=== PATIENT | female | born 1980 | race Caucasian/White ===

== ENCOUNTER 2018-05-23 11:20 | Emergency (ER) | payer BC ==
--- NOTE | 2018-05-23 12:25 | XR ---
EXAMINATION TYPE: XR chest 2V DATE OF EXAM: 05/23/2018 COMPARISON: NONE HISTORY: Cough congestion and sore throat for 3 to 4 days TECHNIQUE: Frontal and lateral views of the chest are obtained. FINDINGS: There is no focal air space opacity, pleural effusion, or pneumothorax seen. The cardiac silhouette size is within normal limits. The osseous structures are intact. IMPRESSION: No acute cardiopulmonary process.
[2018-05-23] MEDS ORDERED: IBUPROFEN 600 MG TAB PO STA (12:44)
--- NOTE | 2018-05-23 12:52 | ED ---
General Adult HPI - General Chief complaint: ENT Stated complaint: Sore Throat Time Seen by Provider: 05/23/18 12:01 Source: patient, RN notes reviewed Mode of arrival: ambulatory Limitations: no limitations - History of Present Illness Initial comments: 38-year-old female presents to the emergency department for a chief complaint of sore throat 4 days. Patient states she can swallow liquids without difficulty but it is painful because her throat is sore. Patient states she also has tenderness of the anterior cervical lymph nodes. Patient admits to a cough for the past 4 months. Patient states she has not seen her primary care provider for this. Patient denies any shortness of breath or wheezing with the cough. Patient states the cough is productive. Patient admits to seasonal ALLERGIES but states she only takes Benadryl at night when needed. She has not taken it lately. Patient states she did have asthma as a child but no longer experiences symptoms of asthma as an adult. Patient denies ear pain. No fevers or chills at home. Patient has no other complaints at this time including shortness of breath, chest pain, abdominal pain, nausea or vomiting, headache, or visual changes. - Related Data Home Medications Medication Instructions Recorded Confirmed FLUoxetine HCL [PROzac] 40 mg PO DAILY 05/23/18 05/23/18 Ibuprofen [Motrin Ib] 200 mg PO Q6H PRN 05/23/18 05/23/18 Previous Rx's Medication Instructions Recorded Loratadine [Claritin] 10 mg PO DAILY #20 tab 05/23/18 Nystatin 100,000 Unit/ml Susp 5 ml PO QID 14 Days ml 05/23/18 [Mycostatin Oral Susp] Allergies Allergy/AdvReac Type Severity Reaction Status Date / Time No Known Allergies Allergy Verified 05/23/18 11:54 Review of Systems ROS Statement: Those systems with pertinent positive or pertinent negative responses have been documented in the HPI. ROS Other: All systems not noted in ROS Statement are negative. Past Medical History Past Medical History: No Reported History History of Any Multi-Drug Resistant Organisms: None Reported Past Surgical History: Cholecystectomy, Orthopedic Surgery Past Psychological History: Anxiety, Depression Smoking Status: Current every day smoker Past Alcohol Use History: None Reported Past Drug Use History: None Reported General Exam Limitations: no limitations General appearance: alert, in no apparent distress Head exam: Present: atraumatic, normocephalic, normal inspection Eye exam: Present: normal appearance. Absent: scleral icterus, conjunctival injection, nystagmus, periorbital swelling, periorbital tenderness ENT exam: Present: normal exam, mucous membranes moist, TM's normal bilaterally , normal external ear exam. Absent: normal oropharynx (slighlty erythematous oropharynx. oropharynx patent. uvula midline. no signs of peritonsillar abscess. Possible thrush noted on tongue.) Neck exam: Present: full ROM, lymphadenopathy (mild tender anterior cervical lymphadenopathy). Absent: tenderness, meningismus Respiratory exam: Present: normal lung sounds bilaterally. Absent: respiratory distress, wheezes, rales, rhonchi, stridor, accessory muscle use, decreased breath sounds, prolonged expiratory Cardiovascular Exam: Present: regular rate, normal rhythm, normal heart sounds. Absent: systolic murmur, diastolic murmur, rubs, gallop, clicks Skin exam: Present: warm, dry, intact, normal color. Absent: rash Course Vital Signs 05/23/18 11:39 Temperature 98.6 F Pulse Rate 85 Respiratory 16 Rate Blood Pressure 131/76 O2 Sat by Pulse 99 Oximetry Medical Decision Making - Medical Decision Making 38-year-old female presents to the emergency department for a chief complaint of sore throat 3 days. Patient can swallow liquids without difficulty. She states it is painful to swallow however. No fevers or chills at home. On exam oropharynx is patent and uvula midline. Mild thrush possible although this may be related to poor oral hygiene. Mild anterior cervical lymphadenopathy. Patient also has a cough/nasal congestion for 4 months. Lungs are clear to auscultation bilaterally. No wheezing noted. Patient does admit to seasonal ALLERGIES but states she does not take anything daily. Chest x-ray shows no acute cardiopulmonary process. No focal airspace opacity. Group A strep negative. Culture will be sent. Patient will be prescribed nystatin for thrush. She will be given Claritin for symptoms of cough and congestion. She will follow up with primary care in 1-2 days. She will return to the emergency Department if she has any worsening symptoms. - Lab Data Lab Results 05/23/18 Range/Units 12:15 Group A Strep Rapid Negative (Negative) Disposition Clinical Impression: Viral pharyngitis, Thrush, oral Disposition: HOME SELF-CARE Condition: Good Instructions: Oral Candidiasis (ED), Pharyngitis (ED) Additional Instructions: Please use nystatin as directed. Take Claritin daily. Take Motrin or Tylenol for pain of the throat. Follow-up with primary care in 1-2 days. If symptoms worsen, you experience high fevers, or have any other additional concerns please return to the emergency department. Prescriptions: Loratadine [Claritin] 10 mg PO DAILY #20 tab Nystatin 100,000 Unit/ml Susp [Mycostatin Oral Susp] 5 ml PO QID 14 Days ml Is patient prescribed a controlled substance at d/c from ED?: No Referrals: Shannan Corona MD [Primary Care Provider] - 1-2 days Time of Disposition: 12:53
[2018-05-23 13:32] VITALS: BP 118/67; PULSE 83; RESP 18; TEMP 98.5
== END 2018-05-23 13:31 | disposition home or self-care (01) ==
LOC: EC 11:20
DX: B37.0 Candidal stomatitis (principal); J02.8 Acute pharyngitis due to other specified organisms; F32.9 Major depressive disorder, single episode, unspecified; F41.9 Anxiety disorder, unspecified; F17.200 Nicotine dependence, unspecified, uncomplicated; Z79.899 Other long term (current) drug therapy
CPT/HCPCS: 71046; 87081; 87430; 99283

== ENCOUNTER 2019-12-11 20:57 | Outpatient (CLI) | payer BC, OTHER ==
[2019-12-11] MEDS ORDERED: TERBUTALINE 1 MG/ML VIAL SQ PRN (23:16)
[2019-12-11] MEDS ORDERED: LACTATED RINGERS 1,000 ML IV SCH (23:30)
[2019-12-12 01:48] VITALS: RESP 16
[2019-12-12 01:51] VITALS: BP 122/67; PULSE 97
--- NOTE | 2020-01-27 10:35 | P.MSEPDOC ---
Presenting Problems - Arrival Data Date of Arrival on Unit: 12/12/19 Time of Arrival on Unit: 20:57 Mode of Transport: Ambulatory - Complaint OB-Reason for Admission/Chief Complaint: Possible Onset of Labor Comment: back pain and pelvic pressure every 10 mins for 1-2 hours Medical History - Information : 3 Para: 2 Term: 2 : 0 Abortions: Spontaneous or Elective: 0 Number of Living Children: 2 - Gestational Age Gestational Age by ALKA (wks/days): 32 Weeks and 2 Days Review of Systems - Review of Systems Constitutional: No problems Breast: No problems ENT: No problems Cardiovascular: No problems Respiratory: No problems Gastrointestinal: No problems Genitourinary: No problems Musculoskeletal: No problems Neurological: No problems Skin: No problems Vital Signs - Pulse Pulse Oximetery Pulse Rate: 97 Pulse Assessment Method: Pulse Oximetry - Respirations Respiratory Rate: 16 Oxygen Delivery Method: Room Air O2 Sat by Pulse Oximetry: 97 - Blood Pressure Right Arm Blood Pressure: 122/67 Blood Pressure Mean: 85 Blood Pressure Source: Automatic Cuff Medical Screen Scoring (Pre) - Cervical Exam Dilation: 1-3 cm = 1 Effacement: Exam Deferred Membranes: Intact - Uterine Contractions Frequency: < 36 weeks = 6 Duration: > 40 seconds = 2 Intensity: N/A - Maternal Vital Signs Maternal Temperature: N/A Maternal Blood Pressure: N/A Signs of Preeclampsia: N/A Maternal Respirations: N/A - Maternal Trauma Maternal Trauma: N/A - Assessment - Baby A Baseline FHR: 130 Heart Rate - NICHD Category: Category I (Normal) = 0 NST: Reactive Position: N/A Station: N/A - Total Score - Baby A Total Score - Baby A: 9 - Total Score - Baby B Total Score - Baby B: 9 - Total Score - Baby C Total Score - Baby C: 9 - Level of Risk - Baby A Level of Risk - Baby A: Medium (6-9) - Level of Risk - Baby B Level of Risk - Baby B: Medium (6-9) - Level of Risk - Baby C Level of Risk - Baby C: Medium (6-9) Physician Notification (Pre) - Physician Notified Physician Notified Date: 12/12/19 Physician Notified Time: 21:26 New Order Received: Yes - Notification Comment Comment: Report given on maternal and status, complaints of back pain and pelvic pressure every 10 mins for 1-2 hours. Mild tightening of abdomen palpated. Orders to obtain FFN, check cervix, and give 1L of LR. 2325 - Orders to give 0.25 mg SQ turbutaline, follow protocol. Medical Screen Scoring (Post) - Uterine Contractions Frequency: N/A Duration: N/A Intensity: N/A - Maternal Vital Signs Maternal Temperature: N/A Maternal Blood Pressure: N/A Signs of Preeclampsia: N/A Maternal Respirations: N/A - Pain Assessment Pain Scale Used: Numeric (1 - 10) Pain Intensity: 0 - Maternal Trauma Maternal Trauma: N/A - Assessment - Baby A Heart Rate: 130 Heart Rate - NICHD Category: Category I (Normal) = 0 NST: Reactive Position: N/A Station: N/A - Total Score Total Score - Baby A: 0 Total Score - Baby B: 0 Total Score - Baby C: 0 - Post Treatment Level of Risk Post Treatment Level of Risk - Baby A: Low (0-5) Post Treatment Level of Risk - Baby B: Low (0-5) Post Treatment Level of Risk - Baby C: Low (0-5) Physician Notification (Post) - Physician Notified Physician Notified Date: 12/12/19 Physician Notified Time: 00:25 Physician/Practitioner Notified:: Hebert Spoke With: Hebert New Order Received: Yes - Notification Comment Comment: Dr. Ambrosio updated on pt's status after 1L LR and 0.25mg SQ turb. Pt denies any contractions, none are palpable, and none are graphing on the monitor. Orders to discharge pt with instructions to follow up with OB this upcoming week, rest, and hydrate. Disposition - Disposition OB Disposition: Discharge to home Discharge Date: 12/12/19 Discharge Time: 00:30 I agree with the RN Medical Screening Exam: Yes Risk & Benefit of care provided described in d/c instruction: Yes Diagnosis: FALSE LABOR BEFORE 37 COMPLETED WEEKS OF GEST, THIRD TRI
== END 2019-12-12 00:32 | disposition home or self-care (01) ==
LOC: FBPOP 20:57
PROVIDERS: ATTEND Obstetrics & Gynecology Obstetrics
DX: O47.03 False labor before 37 completed weeks of gestation, third trimester (principal); Z3A.32 32 weeks gestation of pregnancy
CPT/HCPCS: 59025; 96360; 96361; 96372; 82731; G0463; J3105; 99214

== ENCOUNTER 2020-01-17 20:57 | Outpatient (CLI) | payer OTHER ==
[2020-01-17 22:34] VITALS: BP 129/72; PULSE 83; RESP 16; TEMP 97.8
--- NOTE | 2020-03-13 07:45 | P.MSEPDOC ---
Presenting Problems - Arrival Data Date of Arrival on Unit: 01/17/20 Time of Arrival on Unit: 20:57 Mode of Transport: Ambulatory - Complaint OB-Reason for Admission/Chief Complaint: Possible Onset of Labor Comment: cntrx q15 x1 hr Medical History - Information : 3 Para: 2 Term: 2 : 0 Abortions: Spontaneous or Elective: 0 Number of Living Children: 2 - Gestational Age Gestational Age by ALKA (wks/days): 37 Weeks and 3 Days - History Complications: GBS+ Review of Systems - Review of Systems Constitutional: No problems Breast: No problems ENT: No problems Cardiovascular: No problems Respiratory: No problems Gastrointestinal: No problems Genitourinary: No problems Musculoskeletal: No problems Neurological: No problems Skin: No problems Vital Signs - Temperature Temperature: 97.8 F Temperature Source: Temporal Artery Scan - Pulse Right Pulse Rate: 83 Pulse Assessment Method: Automatic Cuff - Respirations Respiratory Rate: 16 O2 Sat by Pulse Oximetry: 98 - Blood Pressure Right Arm Blood Pressure: 129/72 Blood Pressure Mean: 91 Blood Pressure Source: Automatic Cuff Medical Screen Scoring (Pre) - Cervical Exam Dilation: 1-3 cm = 1 Membranes: Intact - Uterine Contractions Frequency: > or = 36 weeks =2 Duration: > 40 seconds = 2 Intensity: N/A - Maternal Vital Signs Maternal Temperature: N/A Maternal Blood Pressure: N/A Signs of Preeclampsia: N/A Maternal Respirations: N/A - Maternal Trauma Maternal Trauma: N/A - Assessment - Baby A Baseline FHR: 130 Heart Rate - NICHD Category: Category I (Normal) = 0 NST: Reactive Position: N/A - Total Score - Baby A Total Score - Baby A: 5 - Total Score - Baby B Total Score - Baby B: 5 - Total Score - Baby C Total Score - Baby C: 5 - Level of Risk - Baby A Level of Risk - Baby A: Low (0-5) - Level of Risk - Baby B Level of Risk - Baby B: Low (0-5) - Level of Risk - Baby C Level of Risk - Baby C: Low (0-5) Physician Notification (Pre) - Physician Notified Physician Notified Date: 01/17/20 Physician Notified Time: 22:15 - Notification Comment Comment: called Dr May at home. Reported on pt's c/o cramping and cntrx since. 1929, every 15 minutes, no bleeding or leaking. Reported on SVE in office, on admission,. and after 1 hr- no cervical change. Reported on fhts, decel at 2137 that returned to baseline and has been. reactive with moderate variability since. Reported on interventions done, no other. decels noted. Reported on vitals. pt GBS+. Orders to d/c home at this time, return with new or. worsening s/sx, otherwise keep scheduled appt in office Disposition - Disposition OB Disposition: Discharge to home Discharge Date: 01/17/20 Discharge Time: 22:30 I agree with the RN Medical Screening Exam: Yes Risk & Benefit of care provided described in d/c instruction: Yes Diagnosis: False labor
== END 2020-01-17 22:30 | disposition home or self-care (01) ==
LOC: FBPOP 20:57
PROVIDERS: ATTEND Obstetrics & Gynecology
DX: O47.1 False labor at or after 37 completed weeks of gestation (principal); Z3A.37 37 weeks gestation of pregnancy
CPT/HCPCS: 59025; G0463; 99213

== ENCOUNTER 2020-01-26 20:05 | Outpatient (CLI) | payer OTHER ==
[2020-01-26 21:34] VITALS: BP 135/74; PULSE 94; RESP 16; TEMP 98.1
--- NOTE | 2020-01-27 12:05 | P.MSEPDOC ---
Presenting Problems - Arrival Data Date of Arrival on Unit: 01/26/20 Time of Arrival on Unit: 20:05 Mode of Transport: Wheelchair - Complaint OB-Reason for Admission/Chief Complaint: Rule Out SROM Medical History - Information : 4 Para: 2 Term: 2 : 0 Abortions: Spontaneous or Elective: 1 Number of Living Children: 2 - Gestational Age Gestational Age by ALKA (wks/days): 38 Weeks and 5 Days - History Complications: GBS+ Review of Systems - Review of Systems Constitutional: No problems Breast: No problems ENT: No problems Cardiovascular: No problems Respiratory: No problems Gastrointestinal: No problems Genitourinary: No problems Musculoskeletal: No problems Neurological: No problems Skin: No problems Vital Signs - Temperature Temperature: 98.1 F Temperature Source: Oral - Pulse Right Brachial Pulse Rate: 94 Pulse Assessment Method: Automatic Cuff - Respirations Respiratory Rate: 16 Oxygen Delivery Method: Room Air O2 Sat by Pulse Oximetry: 98 - Blood Pressure Right Arm Blood Pressure: 135/74 Blood Pressure Mean: 94 Blood Pressure Source: Automatic Cuff Medical Screen Scoring (Pre) - Cervical Exam Dilation: 1-3 cm = 1 Membranes: Intact - Uterine Contractions Frequency: > 5 minutes apart = 1 Intensity: N/A - Maternal Vital Signs Maternal Temperature: N/A Maternal Blood Pressure: N/A Signs of Preeclampsia: N/A Maternal Respirations: N/A - Maternal Trauma Maternal Trauma: N/A - Assessment - Baby A Baseline FHR: 145 Heart Rate - NICHD Category: Category I (Normal) = 0 NST: Reactive Position: N/A Station: N/A - Total Score - Baby A Total Score - Baby A: 2 - Total Score - Baby B Total Score - Baby B: 2 - Total Score - Baby C Total Score - Baby C: 2 - Level of Risk - Baby A Level of Risk - Baby A: Low (0-5) - Level of Risk - Baby B Level of Risk - Baby B: Low (0-5) - Level of Risk - Baby C Level of Risk - Baby C: Low (0-5) Physician Notification (Pre) - Physician Notified Physician Notified Date: 01/26/20 Physician Notified Time: 20:22 New Order Received: Yes - Notification Comment Comment: Dr. Ambrosio in unit and given report on pt in tr. VS WNL. Reviewed strip. Vag. exam of 2.5/60/-2. Orders recieved to orally hydrate pt. If no change after 1 hour and. amnisure is negative to d/c pt to home. Disposition - Disposition OB Disposition: Discharge to home Discharge Date: 01/26/20 Discharge Time: 21:18 I agree with the RN Medical Screening Exam: Yes Risk & Benefit of care provided described in d/c instruction: Yes Diagnosis: FALSE LABOR AT OR AFTER 37 COMPLETED WEEKS OF GESTATION
== END 2020-01-26 21:18 | disposition home or self-care (01) ==
LOC: FBPOP 20:05
PROVIDERS: ATTEND Obstetrics & Gynecology Obstetrics
DX: O47.1 False labor at or after 37 completed weeks of gestation (principal); Z3A.38 38 weeks gestation of pregnancy
CPT/HCPCS: 59025; 84112; G0463; 99213

== ENCOUNTER 2020-02-01 06:30 | Inpatient (IN) | payer OTHER ==
[2020-02-01] MEDS: LACTATED RINGERS 1,000 ML IV SCH ×2 (06:55→15:04)
[2020-02-01] MEDS ORDERED: CARBOPROST TROMETHAMINE 250 MCG/ML 1 ML AMP IM PRN (07:00)
[2020-02-01] MEDS ORDERED: TERBUTALINE 1 MG/ML VIAL SQ PRN (07:00)
[2020-02-01] MEDS ORDERED: PENICILLIN G POTASSIUM 5,000,000 UNIT in DEXTROSE 5% IN WATER 100 ML IVPB STA ×2 (07:00)
[2020-02-01] MEDS ORDERED: OXYTOCIN 30 UNITS/500 ML NS 30 UNIT in SALINE 1 500ML.BAG IV SCH (07:00)
[2020-02-01] MEDS ORDERED: METHYLERGONOVINE 0.2 MG/ML 1 ML AMP IM PRN (07:00)
[2020-02-01] MEDS ORDERED: LIDOCAINE 0.5% (PF) 5 MG/ML (50 ML SDV) SQ PRN (07:00)
[2020-02-01] MEDS ORDERED: OXYTOCIN 10 UNIT/ML 1 ML VIAL IM PRN (07:00)
[2020-02-01 07:15] LABS: Basophils # (A) 0.1 k/uL (0-0.2); Basophils % (A) 1 %; Eosinophils # (A) 0.3 k/uL (0-0.7); Eosinophils % (A) 2 %; HCT 32.7 % (34.0-46.0); HGB 11.1 gm/dL (11.4-16.0); Lymphocytes # (A) 2.4 k/uL (1.0-4.8); Lymphocytes % (A) 21 %; MCH 32.5 pg (25.0-35.0); MCHC 33.9 g/dL (31.0-37.0); Mean Platelet Volume 7.8; Monocytes # (A) 0.6 k/uL (0-1.0); Monocytes % (A) 5 %; Neutrophils # (A) 7.9 k/uL (1.3-7.7); Neutrophils % (A) 69 %; Platelet Count 287 k/uL (150-450); RDW 13.1 % (11.5-15.5); WBC 11.4 k/uL (3.8-10.6)
[2020-02-01] MEDS ORDERED: BUTORPHANOL 1 MG/ML 1 ML VIAL IV PRN (08:52)
--- NOTE | 2020-02-01 08:56 | P.HPOB ---
History of Present Illness H&P Date: 02/01/20 Chief Complaint: 39-4/7 weeks, elective induction The patient is a 39-year-old 4 para 2011 admitted at 39-4/7 weeks as established by last menstrual period and confirmed by every week ultrasound. Her has been uncomplicated and group B strep status is positive. She does fall into the category of advanced maternal age and declined any trisomy testing. Obstetrical history: 4 para 2012 with 2 term vaginal deliveries with one early miscarriage. Current statistics are listed in history of present illness. EDC of 02/04/2020 was established by last menstrual period and confirmed by an 8 week ultrasound. Laboratory workup demonstrates a blood type of O+ with a negative antibody screen. Rubella status is immune. Remainder of laboratory workup was within normal limits. Early Glucola as well as second trimester Glucola was within normal limits and group B strep status is positive. Gynecologic history: Unremarkable with no history of any infections to include STDs. Review of Systems Review of systems is confined to history of present illness. Past Medical History Past Medical History: No Reported History History of Any Multi-Drug Resistant Organisms: None Reported Past Surgical History: Cholecystectomy, Orthopedic Surgery Additional Past Surgical History / Comment(s): multiple ankle surgeries Past Anesthesia/Blood Transfusion Reactions: No Reported Reaction Past Psychological History: Anxiety, Depression Smoking Status: Never smoker Past Alcohol Use History: None Reported Past Drug Use History: None Reported - Past Family History Father Family Medical History: No Reported History Medications and Allergies Home Medications Medication Instructions Recorded Confirmed Type FLUoxetine HCL [PROzac] 40 mg PO DAILY 05/23/18 02/01/20 History Omeprazole Magnesium [PriLOSEC OTC] 20 mg PO DAILY 12/11/19 02/01/20 History Pnv No.95/Ferrous Fum/Folic AC 1 each PO DAILY 02/01/20 02/01/20 History [ Multivitamin Tablet] Allergies Allergy/AdvReac Type Severity Reaction Status Date / Time No Known Allergies Allergy Verified 02/01/20 06:57 Exam Vital Signs Temp Pulse Resp BP Pulse Ox 02/01/20 07:58 97.5 F L 86 17 130/76 98 Intake and Output 01/31/20 02/01/20 02/01/20 22:59 06:59 14:59 Other: Weight 86.183 kg 86.183 kg In general, this is a well-developed, well-nourished white female in no acute distress. Her heart has a regular rhythm and rate without murmur. Her lungs are clear to auscultation bilaterally in all pacheco. Her abdomen is gravid, nondistended, has normal active bowel sounds, is soft, nontender, and without any palpable masses aside from uterine fundus. Her extremities are without any cyanosis, clubbing, or significant edema and are nontender to palpation bilaterally. Digital cervical examination on straights her cervix to be 3 cm dilated, 50% effaced, the vertex in presentation at -2 station. Artificial rupture of membranes is carried out demonstrating clear fluid. Results Result Diagrams: 02/01/20 06:50 Abnormal Lab Results - Last 24 Hours (Table) 02/01/20 Range/Units 06:50 WBC 11.4 H (3.8-10.6) k/uL RBC 3.40 L (3.80-5.40) m/uL Hgb 11.1 L (11.4-16.0) gm/dL Hct 32.7 L (34.0-46.0) % Neutrophils # 7.9 H (1.3-7.7) k/uL Assessment and Plan (1) Term Current Visit: Yes Status: Acute Code(s): Z34.90 - ENCNTR FOR SUPRVSN OF NO RMAL , UNSP, UNSP TRIMESTER SNOMED Code(s): 06984628 (2) Group B streptococcal infection in Current Visit: Yes Status: Acute Code(s): O98.819 - OTH MATERNAL INFEC/PARASTC DISEASES COMP PREG, UNSP TRI; B95.1 - STREPTOCOCCUS, GROUP B, CAUSING DISEASES CLASSD ELSWHR SNOMED Code(s): 626880878 Plan: The patient is admitted for active management of labor. She has had antibiotic prophylaxis started for group B strep prophylaxis. Pitocin augmentation has been started and she has undergone artificial rupture membranes. She will have close maternal and surveillance and expectant management will be practiced. She is a good candidate for either IV or epidural analgesia, whichever she may choose.
[2020-02-01] MEDS: PENICILLIN G POTASSIUM 2,500,000 UNIT in DEXTROSE 5% IN WATER 100 ML IVPB SCH ×4 (11:15→15:04)
[2020-02-01] MEDS ORDERED: ROPIVACAINE 100 MG, fentaNYL (PF) 200 MCG in SODIUM CHLORIDE 0.9% 76 ML EPIDURAL ONE (15:53)
[2020-02-01] MEDS ORDERED: CITRIC ACID-SODIUM CITRATE 15 ML CUP PO ONE (17:53)
[2020-02-01] MEDS ORDERED: DEXAMETHASONE SOD PHOS (MDV) 100 MG/10 ML VIAL ONE (17:58)
[2020-02-01] MEDS ORDERED: ONDANSETRON 4 MG/2 ML VIAL ONE (17:58)
[2020-02-01] MEDS ORDERED: MORPHINE SULFATE (PF) 0.3 MG/0.3 ML SYR ONE (17:58)
[2020-02-01] MEDS ORDERED: OXYTOCIN 10 UNIT/ML 1 ML VIAL ONE (17:58)
[2020-02-01] MEDS ORDERED: KETOROLAC 30 MG/ML 1 ML VIAL ONE (17:58)
[2020-02-01] MEDS ORDERED: ONDANSETRON 4 MG/2 ML VIAL IVP PRN ×2 (18:26→18:47)
[2020-02-01] MEDS ORDERED: NALOXONE 0.4 MG/ML 1 ML VIAL IV PRN (18:26)
[2020-02-01] MEDS ORDERED: HYDROmorphone 0.5 MG/0.5 ML SYRINGE IVP PRN (18:26)
[2020-02-01] MEDS ORDERED: NALBUPHINE 10 MG/0.5 ML (10 mL MDV) IV PRN (18:26)
[2020-02-01] MEDS ORDERED: diphenhydrAMINE 50 MG/ML 1 ML VIAL IVP PRN ×3 (18:26→18:47)
[2020-02-01] MEDS ORDERED: ACETAMINOPHEN TAB 325 MG TAB PO PRN (18:47)
[2020-02-01] MEDS ORDERED: METOCLOPRAMIDE 5 MG/ML 2 ML VIAL IVP PRN (18:47)
[2020-02-01] MEDS ORDERED: ZOLPIDEM 5 MG TAB PO PRN (18:47)
[2020-02-01] MEDS ORDERED: SIMETHICONE 80 MG CHEWABLE PO PRN (18:47)
[2020-02-01] MEDS ORDERED: diphenhydrAMINE 25 MG CAP PO PRN (18:47)
[2020-02-01] MEDS ORDERED: diphenhydrAMINE 50 MG CAP PO PRN (18:47)
[2020-02-01] MEDS ORDERED: HYDROcodone/APAP 5-325MG 1 EACH TAB PO PRN (18:47)
--- NOTE | 2020-02-01 18:56 | P.OP ---
Date of Procedure: 02/01/20 Preoperative Diagnosis: #1. 39-4/7 weeks, induction of labor #2. Advanced maternal age #3. intolerance of labor Postoperative Diagnosis: Same Procedure(s) Performed: #1. Primary low-transverse section Anesthesia: epidural Surgeon: Jackson Hutchison Supervisor Pressing Department #1: Sheri Corey Estimated Blood Loss (ml): 500 IV fluids (ml): 800 Urine output (ml): 150 Pathology: none sent Condition: stable Disposition: floor Operative Findings: Preoperatively and during the induction process, the patient had a number of deep and prolonged decelerations with no apparent etiology with return to baseline and reasonable variability throughout. Her cervix did progress to approximately 6-7 cm. The head, however, was not engaged in the pelvis and remained at a high station. As result of these findings, the patient was given the option and agreed to proceed with primary low-transverse section. She was taken the operating room where she was delivered of a viable 7 lbs. 14 oz. baby boy with Apgars of 8 at 1 minute and 9 at 5 minutes delivered in the direct occiput anterior position. There was noted to be a portion of the cord directly lateral to the head on the left possibly representing an occult cord prolapse though this was unclear. The placenta was delivered manually, intact, and grossly normal with a grossly normal three-vessel cord. The uterus, tubes, and ovaries were entirely normal to inspection. Description of Procedure: The patient was prepped and draped in usual fashion after epidural anesthesia was bolused by the anesthesiologist. A Pfannenstiel incision was made and extended into the abdominal cavity without difficulty. The bladder peritoneum was elevated, incised, and reflected distally. A 2 cm incision was made in the transverse plane of the uterus to to enter at which time minimal fluid was noted. Incision was extended in both directions using the bandage scissors. The head was delivered up and through the incision where the nose and mouth were thoroughly suctioned. Remainder of the infant was delivered onto the field where the cord was doubly clamped, cut, and the infant passed resuscitative measures with weight and Apgars as noted above. The placenta was delivered manually and intact as noted above. The uterus was exteriorized and the interior cavity of the uterus swept of any remaining placental or membranous fragments. The margins of the uterine incision were grasped with Buchanan clamps and the incision closed in 2 layers. The first layer was a running locking stitch of 0 chromic catgut followed by a running imbricating layer of 0 chromic catgut, each from margin to margin. The posterior cul-de-sac was suctioned using a guard. Uterus was replaced within the abdominal cavity and the gutters swept of any remaining blood, fluid, or clot. Reexamination of the uterine incision demonstrated several points of ongoing oozing along the incision. Each was made hemostatic with a [id number] stitch of 0 chromic catgut. After ensuring adequate hemostasis, the parietal peritoneum was loosely reapproximated and layer of muscles examined and made hemostatic with the Bovie. The fascia was closed with 2 running stitches of 0 Vicryl proceeding from the lateral margins to the midpoint. The subcutaneous tissues were irrigated, made hemostatic with the Bovie, and reapproximated with a running stitch of 30 plain catgut. The skin was reapproximated with a running subcuticular stitch of 4-0 Vicryl followed by half-inch Steri-Strips placed with Mastisol. Estimated blood loss for the case is probably 500 mL. There were no complications. All sponge, instrument, and needle counts were correct. The patient tolerated the procedure well and proceeded to the recovery room in stable condition. Both mother and are resting comfortably in recovery.
[2020-02-01] MEDS ORDERED: OXYTOCIN 20 UNITS/1000 ML NS 1,000 ML IV SCH (19:00)
[2020-02-02] MEDS: KETOROLAC 30 MG/ML 1 ML VIAL IVP PRN ×3 (00:06→15:24)
[2020-02-02] MEDS: LACTATED RINGERS 1,000 ML IV SCH ×4 (00:06→14:48)
[2020-02-02] MEDS: PENICILLIN G POTASSIUM 2,500,000 UNIT in DEXTROSE 5% IN WATER 100 ML IVPB SCH ×6 (00:20→04:00)
[2020-02-02] MEDS: SENNOSIDES-DOCUSATE SODIUM 1 EACH TAB PO SCH ×3 (00:33→22:12)
[2020-02-02 07:03] LABS: Basophils % (A) 0 %; Eosinophils % (A) 0 %; HCT 29.4 % (34.0-46.0); HGB 9.9 gm/dL (11.4-16.0); Lymphocytes # (A) 1.7 k/uL (1.0-4.8); Lymphocytes % (A) 10 %; MCH 32.8 pg (25.0-35.0); MCHC 33.5 g/dL (31.0-37.0); MCV 97.8 fL (80.0-100.0); Mean Platelet Volume 8.3; Monocytes # (A) 0.8 k/uL (0-1.0); Monocytes % (A) 5 %; Neutrophils # (A) 13.5 k/uL (1.3-7.7); Neutrophils % (A) 83 %; Platelet Count 245 k/uL (150-450); RBC 3.01 m/uL (3.80-5.40); WBC 16.3 k/uL (3.8-10.6)
--- NOTE | 2020-02-02 08:15 | P.PN ---
Progress Note - Text Progress Note Date: 02/02/20 Postoperative day 1 status post section under epidural anesthesia, and epidural morphine given for postoperative analgesia, patient doing well, there is no anesthesia related complications, Patient had no headache, vital signs stable , Assessment and plan= postop day 1 status post , doing well there is no anesthesia related complication.
--- NOTE | 2020-02-02 11:40 | P.PNOBGPC ---
Subjective - Subjective Patient reports: Reports appetite normal, Reports voiding normally, Reports pain well controlled, Reports ambulating normally : doing well Objective - Vital Signs Latest vital signs: Vital Signs Temp Pulse Resp BP Pulse Ox 02/02/20 08:00 98.2 F 54 L 18 107/65 98 02/02/20 03:58 97.6 F 50 L 16 104/61 97 02/02/20 01:00 16 02/02/20 00:00 97.8 F 55 L 16 112/68 96 02/01/20 23:26 96 02/01/20 23:00 16 02/01/20 21:26 16 02/01/20 20:50 48 L 16 112/65 97 02/01/20 20:20 49 L 16 109/65 97 02/01/20 20:00 48 L 16 112/65 97 02/01/20 19:50 48 L 16 108/65 97 02/01/20 19:35 51 L 16 106/62 02/01/20 19:26 16 97 02/01/20 19:20 98.6 F 60 16 102/59 97 02/01/20 19:02 54 L 17 102/58 97 02/01/20 18:46 98.7 F 58 L 16 101/62 97 Intake and Output 02/01/20 02/02/20 02/02/20 22:59 06:59 14:59 Output Total 200 150 Balance -200 -150 Output: Urine 200 150 Other: # Voids 1 - Exam Extremities: Present: normal Abdomen: Present: normal appearance, soft. Absent: distention, tenderness Incision: Present: normal, dry, intact Uterus: Present: normal, firm (The uterine fundus is tonic and appropriate tender at the umbilicus.) - Labs Labs: Abnormal Lab Results - Last 24 Hours (Table) 02/02/20 Range/Units 06:42 WBC 16.3 H (3.8-10.6) k/uL RBC 3.01 L (3.80-5.40) m/uL Hgb 9.9 L (11.4-16.0) gm/dL Hct 29.4 L (34.0-46.0) % Neutrophils # 13.5 H (1.3-7.7) k/uL Assessment and Plan (1) Term Current Visit: Yes Status: Acute Code(s): Z34.90 - ENCNTR FOR SUPRVSN OF NORMAL , UNSP, UNSP TRIMESTER SNOMED Code(s): 29721859 (2) Group B streptococcal infection in Current Visit: Yes Status: Acute Code(s): O98.819 - OTH MATERNAL INFEC/PARASTC DISEASES COMP PREG, UNSP TRI; B95.1 - STREPTOCOCCUS, GROUP B, CAUSING DISEASES CLASSD ELSWHR SNOMED Code(s): 998530841 (3) S/P section Current Visit: Yes Status: Acute Code(s): Z98.891 - HISTORY OF UTERINE SCAR FROM PREVIOUS SURGERY SNOMED Code(s): 870598963 Plan: Continue routine postoperative care. I would anticipate possible discharge home tomorrow pending no complications. I have encouraged the patient to ambulate frequently in the hallways. She is otherwise performing all activities of daily living.
[2020-02-02] MEDS: HYDROcodone/APAP 7.5-325MG 1 EACH TAB PO PRN ×2 (12:13→18:53)
[2020-02-02 17:19] VITALS: RESP 16
[2020-02-03] MEDS: HYDROcodone/APAP 7.5-325MG 1 EACH TAB PO PRN ×2 (02:34→07:49)
[2020-02-03] MEDS ORDERED: IBUPROFEN 400 MG TAB PO PRN (05:46)
[2020-02-03] MEDS ORDERED: IBUPROFEN 600 MG TAB PO PRN (05:57)
--- NOTE | 2020-02-03 09:04 | P.DS ---
Providers Date of admission: 02/01/20 06:45 Expected date of discharge: 02/03/20 Attending physician: Jackson Hutchison Primary care physician: Stated None - Discharge Diagnosis(es) (1) Term Current Visit: Yes Status: Acute (2) Group B streptococcal infection in Current Visit: Yes Status: Acute (3) S/P section Current Visit: Yes Status: Acute Hospital Course: The patient is a 39-year-old 4 para 2011 admitted at 39 and 4/7 weeks by good dating parameters. Her was incompetent and group B strep status is negative. She did fall into the category of advanced maternal age and declined testing. On labor and delivery, she had Pitocin augmentation started followed by artificial rupture of membranes. She ultimately had an epidural catheter placed for analgesia and progressed into the active phase of labor. She had a number of random deep prolonged decelerations without any obvious explanation. The head continued to be not engaged in the pelvis despite her dilation to approximately 6 cm. Given the multiple repetitive decelerations and intolerance of labor with a suspicion for a possible occult cord prolapse, the patient was taken the operating room for primary low- transverse section which was performed and uncomplicated fashion. She was delivered of a viable 7 lbs. 14 oz. baby boy with Apgars of 8 at 1 minute and 9 at 5 minutes. Her postoperative course was unremarkable vital signs or any stable and her temperature was afebrile throughout. She was deemed stable for discharge on postoperative day #2 was discharged home to follow-up in the office in 2 weeks for an incision check and 6 weeks routinely. Discharge instructions included calling for any significantly increased bleeding or foul- smelling lochia, significantly increased fever abdominal pain, perineal complaints, breast complaints, incisional complaints, or anything else that concerned her. She is additionally instructed to have nothing in the vagina for at least 6 weeks time to include intercourse and to abstain from any heavy lifting over the same period of time. She was last instructed to do no driving until off of all pain medications or 2 weeks' time, whichever came first. She understood her instructions and agrees to follow up as noted above. Discharge medications included a prescription for [place] 5/325 mg, 1-2 by mouth every 6 hours. Pain, #20 dispensed with no refills. She was additionally use [id number] analgesic pain medications as needed. Maternal blood type is O+ and rubella status is immune. Discharge hemoglobin and hematocrit were 9.9 and 29.4 respectively. Procedures: #1. Pitocin induction of 2. Artificial rupture of membranes #3. Epidural analgesia #4. Primary low-transverse section Patient Condition at Discharge: Stable Plan - Discharge Summary New Discharge Prescriptions: No Action FLUoxetine HCL [PROzac] 40 mg PO DAILY Omeprazole Magnesium [PriLOSEC OTC] 20 mg PO DAILY Pnv No.95/Ferrous Fum/Folic AC [ Multivitamin Tablet] 1 each PO DAILY Discharge Medication List FLUoxetine HCL [PROzac] 40 mg PO DAILY 05/23/18 [History] Omeprazole Magnesium [PriLOSEC OTC] 20 mg PO DAILY 12/11/19 [History] Pnv No.95/Ferrous Fum/Folic AC [ Multivitamin Tablet] 1 each PO DAILY 02/01/20 [History] Follow up Appointment(s)/Referral(s): Jackson Hutchison MD [STAFF PHYSICIAN] - 2 Weeks Discharge Disposition: HOME SELF-CARE
[2020-02-03] MEDS: SENNOSIDES-DOCUSATE SODIUM 1 EACH TAB PO SCH (09:10)
[2020-02-03 09:25] VITALS: BP 113/45; PULSE 58; TEMP 97.9
== END 2020-02-03 10:40 | disposition home or self-care (01) | DRG 788 ==
LOC: 4FBP 06:45
PROVIDERS: ADMIT Obstetrics & Gynecology; ATTEND Obstetrics & Gynecology
PROC: 10D00Z1 Extraction of Products of Conception, Low, Open Approach (ICD-10-PCS; principal; 2020-02-01 18:00)
DX: O98.82 Other maternal infectious and parasitic diseases complicating childbirth (principal); B95.1 Streptococcus, group B, as the cause of diseases classified elsewhere; O99.62 Diseases of the digestive system complicating childbirth; K21.9 Gastro-esophageal reflux disease without esophagitis; O76 Abnormality in fetal heart rate and rhythm complicating labor and delivery; O99.344 Other mental disorders complicating childbirth; F41.9 Anxiety disorder, unspecified; F32.9 Major depressive disorder, single episode, unspecified; Z37.0 Single live birth; Z3A.39 39 weeks gestation of pregnancy; Z79.899 Other long term (current) drug therapy; Z90.49 Acquired absence of other specified parts of digestive tract
CPT/HCPCS: 85025; 86850; 86900; 86901

== ENCOUNTER 2021-08-22 00:19 | Emergency (ER) | payer OTHER ==
[2021-08-22 00:40] VITALS: BP 129/83; PULSE 82; RESP 18; TEMP 97.9
[2021-08-22] MEDS ORDERED: DEXAMETHASONE SOD PHOSPHATE 10 MG/ML 1 ML VIAL IM STA (01:14)
--- NOTE | 2021-08-22 02:13 | ED ---
General Adult HPI - General Chief complaint: ENT Stated complaint: ENT Time Seen by Provider: 08/22/21 00:57 Source: patient, RN notes reviewed Mode of arrival: ambulatory Limitations: no limitations - History of Present Illness Initial comments: 41-year-old female presents to the emergency room for a chief complaint of sore throat. Patient has had a sore throat for 4 days now. Patient states it is painful to swallow. Patient denies fevers or chills. Patient denies any rashes.Patient has no other complaints at this time including shortness of br eath, chest pain, abdominal pain, nausea or vomiting, headache, or visual changes. - Related Data Home Medications Medication Instructions Recorded Confirmed FLUoxetine HCL [PROzac] 40 mg PO DAILY 05/23/18 02/01/20 Omeprazole Magnesium [PriLOSEC OTC] 20 mg PO DAILY 12/11/19 02/01/20 Pnv No.95/Ferrous Fum/Folic AC 1 each PO DAILY 02/01/20 02/01/20 [ Multivitamin Tablet] Previous Rx's Medication Instructions Recorded Amoxicillin 500 mg PO Q12HR #14 cap 08/22/21 Allergies Allergy/AdvReac Type Severity Reaction Status Date / Time No Known Allergies Allergy Verified 08/22/21 00:40 Review of Systems ROS Statement: Those systems with pertinent positive or pertinent negative responses have been documented in the HPI. ROS Other: All systems not noted in ROS Statement are negative. Past Medical History Past Medical History: No Reported History History of Any Multi-Drug Resistant Organisms: None Reported Past Surgical History: Cholecystectomy, Orthopedic Surgery Additional Past Surgical History / Comment(s): multiple ankle surgeries Past Anesthesia/Blood Transfusion Reactions: No Reported Reaction Past Psychological History: Anxiety, Depression Smoking Status: Current every day smoker Past Alcohol Use History: None Reported Past Drug Use History: None Reported - Past Family History Father Family Medical History: No Reported History General Exam Limitations: no limitations General appearance: alert, in no apparent distress Head exam: Present: atraumatic Eye exam: Present: normal appearance, PERRL, EOMI. Absent: scleral icterus, conjunctival injection ENT exam: Present: normal exam, mucous membranes moist, normal external ear exam. Absent: normal oropharynx (uvula is midline. No tonsillar exudates noted however uvula laxity is noted.) Neck exam: Present: normal inspection, full ROM. Absent: tenderness Respiratory exam: Present: normal lung sounds bilaterally. Absent: respiratory distress, wheezes Cardiovascular Exam: Present: regular rate, normal rhythm, normal heart sounds Course Vital Signs 08/22/21 00:36 Temperature 97.9 F Pulse Rate 82 Respiratory 18 Rate Blood Pressure 129/83 O2 Sat by Pulse 99 Oximetry Medical Decision Making - Medical Decision Making vitals are stable. Patient is well-appearing. Patient does have exudate on uvula consistent with uvulitis. Strep was negative. However we will treat her with antibiotics pending culture pending culture. Decadron given. - Lab Data Lab Results 08/22/21 08/22/21 Range/Units 01:17 01:20 Coronavirus (PCR) Not Detected (Not Detectd) Group A Strep Rapid Negative (Negative) Disposition Clinical Impression: Uvulitis Disposition: HOME SELF-CARE Condition: Good Instructions (If sedation given, give patient instructions): Uvulitis (ED) Additional Instructions: Take antibiotic as directed. Follow up on culture results. Follow up with your doctor in 1-2 days. Return to the ER for any worsening symptoms. Prescriptions: Amoxicillin 500 mg PO Q12HR #14 cap Is patient prescribed a controlled substance at d/c from ED?: No Referrals: Shannan Corona MD [Primary Care Provider] - 1-2 days Time of Disposition: 02:12
[2021-08-22] MEDS ORDERED: AMOXICILLIN 500 MG CAP PO STA (02:33)
== END 2021-08-22 02:51 | disposition home or self-care (01) ==
LOC: EC 00:19
DX: K12.2 Cellulitis and abscess of mouth (principal); F17.200 Nicotine dependence, unspecified, uncomplicated; F41.9 Anxiety disorder, unspecified; F32.9 Major depressive disorder, single episode, unspecified
CPT/HCPCS: 87081; 87430; 87635; 99283; 96372; J1100

== ENCOUNTER 2022-03-01 09:10 | Emergency (ER) | payer OTHER ==
[2022-03-01 09:17] VITALS: RESP 18; TEMP 97.8
[2022-03-01] MEDS ORDERED: KETOROLAC 15 MG/ML 1 ML VIAL IM STA (09:43)
--- NOTE | 2022-03-01 09:48 | ED ---
Extremity Problem HPI - General Chief complaint: Extremity Problem,Nontraumatic Stated complaint: Lt Knee Pain Time Seen by Provider: 03/01/22 09:30 Source: patient, RN notes reviewed Limitations: no limitations - History of Present Illness Initial comments: 41-year-old female with a benign history who started developing left knee pain yesterday. She does not recall any particular injury however she states she may have injured it by placing the child in a car seat. She states the pain is mostly sharp moderate to severe in severity mostly medial anterior. No prior history of knee injury. No loss of function to the upper or lower extremities she states she does have pain when she tries to move her knee at all however. She can move her foot and toes without any difficulty. No pain proximal to the left knee. MD Complaint: extremity pain - Related Data Home Medications Medication Instructions Recorded Confirmed FLUoxetine HCL [PROzac] 40 mg PO HS 05/23/18 03/01/22 Previous Rx's Medication Instructions Recorded Ibuprofen 800 mg PO Q6HR PRN #20 tablet 03/01/22 Allergies Allergy/AdvReac Type Severity Reaction Status Date / Time No Known Allergies Allergy Verified 03/01/22 10:26 Review of Systems ROS Statement: Those systems with pertinent positive or pertinent negative responses have been documented in the HPI. ROS Other: All systems not noted in ROS Statement are negative. Past Medical History Past Medical History: No Reported History History of Any Multi-Drug Resistant Organisms: None Reported Past Surgical History: Cholecystectomy, Orthopedic Surgery Additional Past Surgical History / Comment(s): multiple ankle surgeries Past Anesthesia/Blood Transfusion Reactions: No Reported Reaction Past Psychological History: Anxiety, Depression Smoking Status: Current every day smoker Past Alcohol Use History: None Reported Past Drug Use History: None Reported - Past Family History Father Family Medical History: No Reported History General Exam - General Exam Comments Initial Comments: This is a well-developed well-nourished awake alert oriented history female Limitations: no limitations General appearance: alert, anxious Head exam: Present: atraumatic, normocephalic, normal inspection Eye exam: Present: normal appearance, PERRL, EOMI. Absent: scleral icterus, conjunctival injection, periorbital swelling Neck exam: Present: full ROM Extremities exam: Present: normal inspection, tenderness, normal capillary refill, other (Tennis palpation over the medial aspect of the left knee and distal anterior medial upper leg no step-off no crepitation limited range of motion secondary to pain. No crepitation no posterior tenderness.). Absent: full ROM Psychiatric exam: Present: normal affect, normal mood Skin exam: Present: warm, dry, intact, normal color. Absent: rash Course Vital Signs 03/01/22 09:15 Temperature 97.8 F Pulse Rate 92 Respiratory 18 Rate Blood Pressure 134/84 O2 Sat by Pulse 100 Oximetry Medical Decision Making - Medical Decision Making Patient did not get much relief from initial shot she will be discharged with orthopedic follow-up she will be placed on Deangelo wrap crutches NSAIDs I did recommend ice elevation - Radiology Data Radiology results: report reviewed (Imaging reviewed no evidence of acute processes.), image reviewed Disposition Clinical Impression: Strain of left knee Disposition: HOME SELF-CARE Condition: Good Additional Instructions: Crutches as directed Prescriptions: Ibuprofen 800 mg PO Q6HR PRN #20 tablet PRN Reason: Pain Is patient prescribed a controlled substance at d/c from ED?: No Referrals: None,Stated [Primary Care Provider] - 1-2 days Tae Mckeon MD [Medical Doctor] - 1-2 days Decision Date: 03/01/22 Decision Time: 10:53
--- NOTE | 2022-03-01 10:10 | XR ---
EXAMINATION TYPE: XR knee 4V LT DATE OF EXAM: 03/01/2022 CLINICAL HISTORY: Twisting injury with pain TECHNIQUE: Three views of the left knee are obtained. Fourth sunrise view was performed. COMPARISON: None. FINDINGS: There is no acute fracture/dislocation evident in left knee. The tri-compartment joint sp aces appear within normal limits. Patellar articulation satisfactory on the sunrise view. The overly ing soft tissue appears unremarkable. IMPRESSION: There is no acute fracture or dislocation in the left knee.
[2022-03-01] MEDS ORDERED: HYDROcodone/APAP 7.5-325MG 1 EACH TAB PO ONE (10:52)
[2022-03-01 12:30] VITALS: BP 128/83; PULSE 89
== END 2022-03-01 11:44 | disposition home or self-care (01) ==
LOC: EC 09:10
DX: S86.912A Strain of unspecified muscle(s) and tendon(s) at lower leg level, left leg, initial encounter (principal); F32.A Depression, unspecified; F41.9 Anxiety disorder, unspecified; F17.200 Nicotine dependence, unspecified, uncomplicated; Z79.899 Other long term (current) drug therapy; X50.1XXA Overexertion from prolonged static or awkward postures, initial encounter
CPT/HCPCS: 73564; 99283; 96372; J1885

== ENCOUNTER → 2022-10-24 | Outpatient (CLI) | payer BC, OTHER ==
--- NOTE | 2022-10-24 13:40 | XR ---
EXAMINATION TYPE: XR hand complete LT DATE OF EXAM: 10/24/2022 COMPARISON: None HISTORY: Pain shooting in the hands TECHNIQUE: 3 view left hand FINDINGS: No acute fracture or dislocation is evident. Soft tissues are normal. Joint spaces are pres erved. Follow-up studies 10 be performed 7-10 days from acute trauma for continued pain. IMPRESSION: 1. No acute osseous abnormality
--- NOTE | 2022-10-24 13:43 | XR ---
EXAMINATION TYPE: XR forearm LT DATE OF EXAM: 10/24/2022 COMPARISON: None HISTORY: Pain TECHNIQUE: 2 view left forearm FINDINGS: Anterior fat pad is normal. Radius aligns normally with the humerus. No acute fracture or d islocation is evident. The wrist joint as visualized appears within normal limits. Follow-up studies can be performed 7-10 days from acute trauma for continued pain IMPRESSION: 1. No acute osseous abnormality left forearm
== END | disposition home or self-care (01) ==
LOC: RADXRYALE 13:09
PROVIDERS: ATTEND Physician Assistant
DX: M79.632 Pain in left forearm (principal); M79.642 Pain in left hand